=== PATIENT | female | born 1985 | race Caucasian/White ===

== ENCOUNTER 2018-10-18 22:41 | Emergency (ER) | payer OTHER, MEDICAID ==
[~2018-10-18] VITALS: Ht 170.2 cm; Wt 97.5 kg
[~2018-10-18 22:41] MED LIST: AMOXICILLIN 50500 MG PO; ANAPROX DS550 MG PO; APAP500; APAP500 PO; BACTRIM DS TAB1 EACH PO; FLEXERIL PO; HYDROCODON-ACE1 EAC7 PO; IBUPROFEN 800800 M1 PO; IBUPROFEN 800800 MG PO; LORTAB 5 MG/5001 TA1 PO; NOHOMEMEDICATIONS; NORCO 5-325 TA1 EACH PO; NORFLEX100 MG PO; PENICILLIN VK500 MG PO; PREDNISONE 10 M10 M1 PO; PREDNISONE 20 M20 M1 PO; ROBAXIN 750 MG750 M1 PO; TRAMADOL 50 MG50 MG PO; VENTOLIN HFA INH8 GM IH; ZPAK PO
[2018-10-18] MEDS ORDERED: IBUPROFEN 600600 M1 (22:54)
[2018-10-18] MEDS ORDERED: NORCO 5-325 TA1 EACH (22:54)
[2018-10-18] MEDS ORDERED: PENICILLIN VK250 MG PO (23:08)
[2018-10-18 23:31] VITALS: BP 147/86
== END 2018-10-18 23:31 | disposition home or self-care (01) ==
LOC: M.ERS 22:41
DX: K04.7 Periapical abscess without sinus (principal); F17.210 Nicotine dependence, cigarettes, uncomplicated; Z88.6 Allergy status to analgesic agent